=== PATIENT | female | born 1955 | race Caucasian/White ===

== ENCOUNTER 2019-06-02 09:42 | Outpatient (CLI) | payer MEDICARE, SELFPAY ==
--- NOTE | 2019-06-02 09:45 | MM_ITS ---
WS: [id number] SCREENING DIGITAL MAMMOGRAM WITH CAD HISTORY: SCREENING COMPARISON: 05/10/2018 and 04/19/2017 Bilateral CC and MLO views submitted. Computer aided detection analyzed. Breast composition: There are scattered areas of fibroglandular density. No suspicious masses, microc alcifications or architectural distortion. Benign calcifications in each breast. MM/[id number] IMPRESSION: BI-RADS: 2-Benign FOLLOW UP: 1 Year Follow-up
== END 2019-06-02 09:43 | disposition home or self-care (01) ==
LOC: RADSHAW 09:42
PROVIDERS: Family Provider Family Medicine; PCP Family Medicine; Visit Provider Family Medicine
DX: Z12.31 Encounter for screening mammogram for malignant neoplasm of breast (principal)
CPT/HCPCS: 77067

== ENCOUNTER 2019-07-02 12:25 | Outpatient (CLI) | payer MEDICARE, SELFPAY ==
--- NOTE | 2019-07-02 12:43 | XR_ITS ---
WS: [id number] LATERAL LUMBAR SPINE: 3 view. Lateral radiographs are performed in upright neutral, flexion and extension to the patient's toleranc e. HISTORY: LOW BACK PAIN COMPARISON: None available. Marked osteopenia. Posterior lumbar alignment is normal taking into consideration the rotation of the vertebral bodies. Facet joint arthropathy and mild foraminal narrowing and facet arthropathy. Mild l oss of height involving the superior endplate of L2. No instability. XR/XR lumbar spine f/e only [id number] IMPRESSION: 1. No lumbar spine instability. 2. Multilevel moderate spondylitic changes.
== END 2019-07-02 12:26 | disposition home or self-care (01) ==
PROVIDERS: Family Provider Family Medicine; PCP Family Medicine; Visit Provider Nurse Practitioner
DX: M54.5 Low back pain (principal)
CPT/HCPCS: 72120

== ENCOUNTER 2020-07-05 14:53 | Outpatient (CLI) | payer MEDICARE, SELFPAY ==
--- NOTE | 2020-07-05 14:59 | MM_ITS ---
WS: [id number] BILATERAL DIGITAL SCREENING MAMMOGRAPHY WITH CAD CLINICAL INFORMATION: SCREENING HISTORY: Screening mammogram. No current complaints. COMPARISON: June 02, 2019 TECHNIQUE: Bilateral CC and MLO views. FINDINGS: Scattered fibroglandular densities bilaterally. 5 mm nodular density near the 1:00 position posterior depth. Recommend further evaluation with spot right diagnostic mammography and ultrasound. Left breast is unremarkable and unchanged. MM/[place] [id number] IMPRESSION: BI-RADS: 0-Incomplete: Need additional imaging evaluation FOLLOW UP: Need Additional Imaging RECOMMEND FURTHER EVALUATION RIGHT BREAST DIAGNOSTIC MAMMOGRAPHY AND ULTRASOUND .
== END 2020-07-05 14:54 | disposition home or self-care (01) ==
LOC: RADSHAW 14:58
PROVIDERS: PCP Family Medicine; Visit Provider Family Medicine
DX: Z12.31 Encounter for screening mammogram for malignant neoplasm of breast (principal); N63.12 Unspecified lump in the right breast, upper inner quadrant
CPT/HCPCS: 77067

== ENCOUNTER 2020-08-17 13:09 | Outpatient (CLI) | payer MEDICARE, SELFPAY ==
--- NOTE | 2020-08-17 13:26 | XR_ITS ---
WS: [id number] CHEST 2 VIEWS HISTORY: HEMOPTYSIS COMPARISON: None available. Lungs: Clear with no abnormality. No pleural effusion or pneumothorax. Cardiac size: Normal. Mediastinum/Aorta: Normal mediastinum. Bones: Mild thoracic spondylosis. XR/XR chest 2V* [id number] IMPRESSION: Negative chest.
== END 2020-08-17 13:10 | disposition home or self-care (01) ==
LOC: RADOUTREAD 13:15 → RADWPI 13:25
PROVIDERS: PCP Family Medicine; Visit Provider Registered Nurse
DX: R04.2 Hemoptysis (principal)
CPT/HCPCS: 71046

== ENCOUNTER 2020-09-08 08:54 | Outpatient (CLI) | payer MEDICARE, SELFPAY ==
--- NOTE | 2020-09-08 09:02 | US_ITS ---
WS: [id number] RIGHT DIGITAL MAMMOGRAPHY WITH CAD CLINICAL INFORMATION: ABNORMAL MAMMOGRAM COMPARISON: July 05, 2020 TECHNIQUE: 3 views of the right breast were obtained. FINDINGS: Scattered fibroglandular densities of the right breast. Again seen is the 5 mm ovoid density posterio r depth at the 1:00 position. Ultrasound is pending. ULTRASOUND BREAST RIGHT TECHNIQUE: Ultrasound right breast focused area of concern. CLINICAL INFORMATION: ABNORMAL MAMMOGRAM COMPARISON: None. FINDINGS: Ultrasound right breast 1:00 position 4 cm from the nipple. Small cystic lesion measuring 6 mm 1:00 p osition has a benign appearance. A few incidental prominent ducts. No suspicious lesions to target fo r biopsy. Recommend return to annual screening mammography. US/US breast RT limited* [id number] IMPRESSION: BI-RADS: 2-Benign FOLLOW UP: 1 Year Follow-up Recommend return to annual screening mammography.
== END 2020-09-08 08:55 | disposition home or self-care (01) ==
LOC: RADSHAW 08:57
PROVIDERS: PCP Family Medicine; Visit Provider Family Medicine
DX: R92.8 Other abnormal and inconclusive findings on diagnostic imaging of breast (principal)
CPT/HCPCS: 76642; 77065

== ENCOUNTER 2020-11-03 13:07 | Emergency (ER) | payer MEDICARE, SELFPAY ==
[2020-11-03 13:41] VITALS: BP 208/81; PULSE 76; RESP 20; TEMP 37.1; O2SAT 96; BMI 40.3
--- NOTE | 2020-11-03 14:07 | ECG_ITS ---
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 Measurements Intervals [place] Rate: 71 P: 16 AK: 184 QRS: 22 QRSD: 78 T: 30 QT: 389 QTc: 425 Interpretive Statements SINUS RHYTHM No previous ECG available for comparison Electronically Signed On 11-03-2020 20:05:52 CDT by Chandler Robb M.D. [id number]
--- NOTE | 2020-11-03 14:20 | W.ED.WEAKNES ---
HPI - Weakness General: Chief complaint: Weakness Stated complaint: headache, HTN Time Seen by Provider: 11/03/20 13:51 History of Present Illness: HPI Narrative: 65-year-old female presents emergency room complaining of headache and elevated blood pressure. She was out to eat with her friends went to stand up got lightheaded and dizzy ultimately had to lean on some other furniture for support. She denies any chest pain or difficulty breathing. She denies any focal weakness no difficulty speech swallowing hearing or vision. She has a mild frontal headache associated with this. MD Complaint: generalized weakness Onset (ago): hour(s) Duration: constant Location: generalized Migration: none Severity: mild Relieving factors: none Exacerbating factors: none Associated symptoms: Reports headache(s); Denies chest pain, chills, confusion, melena, decreased appetite, diaphoresis, dysuria, easy bruising, fever(s), myalgias, nausea, rash, short of breath, syncope or vomiting Review of Systems Const: Denies: fever(s), chills or diaphoresis ENMT: Denies: throat pain, ear or mastoid pain, nasal discharge or nasal congestion Card: Denies: chest pain or syncope Resp: Denies: dyspnea, productive cough or non-productive cough GI: Denies: nausea, vomiting or melena : Denies: dysuria Skin/Breast: Denies: rash or pruritus Neuro: Reports: headache(s); Denies: confusion Artie/Lymph: Denies: easy bruising Physical Exam Const: COMMON NORMALS: no acute distress GENERAL APPEARANCE: cooperative and comfortable ORIENTATION/CONSCIOUSNESS: Yes awake, Yes oriented to person, Yes oriented to place and Yes oriented to time HENMT: COMMON NORMALS: normocephalic, atraumatic, hearing grossly normal bilaterally and external ears normal HEAD & SCALP: normocephalic and atraumatic EXTERNAL EAR: Yes external ears normal Neck/C-Spine: COMMON NORMALS: no JVD Resp: COMMON NORMALS: normal respiratory effort, No retractions, No use of accessory muscles and clear to auscultation bilaterally AUSCULTATION: clear to auscultation bilaterally Cardio: COMMON NORMALS: no JVD, regular rate, regular rhythm and No murmurs present (Cardio) RATE: regular rate RHYTHM: regular rhythm GI: COMMON NORMALS: Soft to palpation and No hepatosplenomegaly present AUSCULTATION: Yes normoactive bowel sounds PALPATION: Yes Soft to palpation, No Tenderness to palpation present (GI), No Guarding due to palpation present (GI) and Yes No hepatosplenomegaly present Extremity: COMMON NORMALS: normal to inspection, capillary refill normal, no clubbing, cyanosis or edema, no calf tenderness and no pedal edema Neuro: SENSORIUM/ORIENTATION: Yes oriented to person, Yes oriented to place and Yes oriented to time Skin: COMMON NORMALS: no rashes or lesions noted GENERAL SKIN EXAM: no rashes or lesions noted Course Vital Signs: Vital signs: Vital Signs Temperature 98.8 F 11/03/20 13:41 Pulse Rate 70 11/03/20 16:56 Respiratory Rate 17 11/03/20 16:56 Blood Pressure 183/72 11/03/20 16:56 Pulse Oximetry 96 11/03/20 16:56 MDM - Weakness MDM Narrative: Medical decision making narrative: head CT negative blood pressure is improved with medications or headache is resolved. We will go ahead and discharge patient home add metoprolol 25 mg once daily amlodipine 2 mg daily. Follow-up with primary care doctor within a week Lab Data: Labs: Lab Results 11/03/20 11/03/20 11/03/20 Range/Units 14:27 15:12 15:12 WBC 11.6 H (4.0-10.0) 10^3/ uL RBC 4.36 (4.1-5.3) 10^6/u L Hgb 13.5 (11.5-15.3) g/dL Hct 40.9 (37.0-47.0) % MCV 93.8 (81-99) fL MCH 31.0 (28.0-34.0) pg MCHC 33.0 (30.0-36.0) g/dL RDW 12.7 (12.1-15.1) % Plt Count 293 (130-400) 10^3/c mm MPV 10.1 (7.4-10.4) fL Neut % (Auto) 79.6 % Lymph % (Auto) 13.0 % Mcmullen % (Auto) 6.2 % Eos % (Auto) 0.5 % Baso % (Auto) 0.3 % Neut # (Auto) 9.22 H (1.8-7.7) 10^3/u L Lymph # (Auto) 1.5 (0.8-4.8) 10^3/u L Mcmullen # (Auto) 0.7 (0.2-0.9) 10^3/u L Eos # (Auto) 0.1 (0.0-0.8) 10^3/u L Baso # (Auto) 0.0 (0.0-0.1) 10^3/u L Nucleated RBC % (a uto) 0 % Nucleated RBCs # 0.0 /100WBC Sodium 135 L (136-145) mmol/L Potassium 4.3 (3.5-5.1) mmol/L Chloride 99 (98-107) mmol/L Carbon Dioxide 28 (22-29) mmol/L Anion Gap 12.3 (5-19) BUN 20 (8-23) mg/dL Creatinine 1.0 H (0.5-0.9) mg/dL GFR Calculation 55.3 L (90-130) mL/min Glucose 129 H (65-115) mg/dL Calculated Osmolal ity 284 L (285-295) mOsm/k g Calcium 9.1 (8.5-10.5) mg/dL Total Bilirubin 0.3 (0.15-1.2) mg/dL AST 22 (0-32) U/L ALT 26 (0-33) U/L Alkaline Phosphata se 92 (35-105) IU/L Creatine Kinase 66 (26-192) U/L Total Protein 6.8 (6.6-8.7) g/dL Albumin 3.8 (3.5-5.2) g/dL Globulin 3.0 (1.3-4.6) g/dL Urine Color Yellow (Yellow) Urine Appearance Clear (CLEAR) Urine pH 6 (5-7) Ur Specific Gravit y 1.010 (1.005-1.030) Urine Protein Neg (Negative) Urine Glucose (UA) Norm (Normal) Urine Ketones Negative (Negative) Urine Blood Neg (Negative) Urine Nitrate Negative (Negative) Urine Bilirubin Neg (Negative) Urine Urobilinogen Norm (Negative) mg/dL Ur Leukocyte Lupe ase Negative (Negative) Discharge Plan Discharge Patient Disposition: Home Clinical Impression: Hypertension Condition: Stable Prescriptions: New metoprolol succinate 25 mg tablet extended release 24 hr 25 mg PO DAILY Qty: 30 RF: 0 amlodipine 10 mg tablet 10 mg PO DAILY Qty: 30 RF: 0 Discharge Orders: Discharge ED (Routine); Ordered 11/03/20 Ordered By: Domingo Hinton Referrals: Mallory Dean DO [Primary Care Provider] - Discharge Diet: Usual diet Discharge Activity: Increase activity as tolerated Patient Instructions: Opioid Safety Activity Restrictions/Additional Instructions: Follow-up to recheck your pressure within 1 week with your primary care doctor. Coding Level of Care Code ED Housekeeping Aid for Alvaradog Fwd Exam Comprehensive NIH stroke score NIHSS Level Of Consciousness - 1a: 0 Level Of Consciousness Questions - 1b: Both Correct Level Of Consciousness Commands - 1c: Both Correct Best Gaze - 2: Normal Visual Chand - 3: No Visual Loss Facial Palsy - 4: Normal Motor Arm Right - 5: No Drift Motor Arm Left - 5: No Drift Motor Leg Right - 6: No Drift Motor Leg Left - 6: No Drift Limb Ataxia - 7: Absent Sensory - 8: Normal Best Language - 9: No Aphasia Dysarthia - 10: Normal Extinction And Inattention - 11: 0 Score Total Score: 0
[2020-11-03 14:37] LABS: Add Urine Microscopic? NO; Charge for UA Resulting for Rev
[2020-11-03 14:43] LABS: Urine Appearance Clear (CLEAR); Urine Color Yellow (Yellow)
[2020-11-03] MEDS: metoprolol tartrate 1 mg/1 mL SDV 5 mL 5 MG IV ×2 (14:43→16:47)
[2020-11-03] MEDS: amlodipine 10 mg Tablet PO (14:43)
[2020-11-03 14:44] LABS: Bilirubin Urine Neg (Negative); Blood Urine Neg (Negative); Glucose Urine UA Norm (Normal); Ketones Urine Negative (Negative); Leukocyte Esterase Urine Negative (Negative); Nitrate Urine Negative (Negative); Protein Urine Neg (Negative); Urobilinogen Urine Norm (Negative); pH Urine 6 (5-7)
[2020-11-03] MEDS: hyDRALAzine 20 mg/mL INJ 1 mL IVP (15:00)
[2020-11-03 15:23] LABS: Basophils % 0.3 %; Eosinophils # 0.1 10^3/uL (0.0-0.8); Eosinophils % 0.5 %; Hematocrit 40.9 % (37.0-47.0); Hemoglobin 13.5 g/dL (11.5-15.3); Lymphocytes # 1.5 10^3/uL (0.8-4.8); Mean Corpuscular Volume 93.8 fL (81-99); Mean Platelet Volume 10.1 fL (7.4-10.4); Monocytes # 0.7 10^3/uL (0.2-0.9); Monocytes % 6.2 %; Neutrophils # 9.22 10^3/uL (1.8-7.7); Neutrophils % 79.6 %; Nucleated Red Blood Cells % 0 %; Platelet Count 293 10^3/cmm (130-400); Red Blood Count 4.36 10^6/uL (4.1-5.3); Red Cell Distribution Width 12.7 % (12.1-15.1); White Blood Count 11.6 10^3/uL (4.0-10.0)
--- NOTE | 2020-11-03 15:36 | CT_ITS ---
WS: [id number] CT HEAD NONCONTRAST HISTORY: headache, accelerated HTN TECHNIQUE: Contiguous axial imaging performed through the brain in 2.5 mm imaging. Bone and soft tiss ue windows. Sagittal and coronal reformats reviewed. All CT scans at [facility] use at ast one of these dose optimization techniques: automated exposure control; mA and/or kV adjustment pe r patient size (includes targeted exams where dose is matched to clinical indication); or iterative r econstruction. DLP: 937.89 mGy.cm COMPARISON: None available. No acute intracranial hemorrhage, midline shift or mass effect. No atrophy or prior infarcts or herniation. Very minimal changes of chronic microvascular ischemic d isease in the white matter. Prior lacunar infarct in the RIGHT external capsule. Ventricles: Normal size with no hydrocephalus. Paranasal sinuses: As visualized are clear. Mastoid air cells: Well pneumatized. Calvarium and scalp: Skull is intact with no soft tissue edema or swelling. CT/CT head wo con* [id number] IMPRESSION: 1. No acute intracranial hemorrhage or edema. 2. Very mild chronic microvascular ischemic disease.
[2020-11-03 15:41] LABS: Alanine Aminotransferase 26 U/L (0-33); Albumin Level 3.8 g/dL (3.5-5.2); Alkaline Phosphatase 92 IU/L (35-105); Anion Gap 12.3 (5-19); Aspartate Amino Transferase 22 U/L (0-32); Blood Urea Nitrogen 20 mg/dL (8-23); Calcium 9.1 mg/dL (8.5-10.5); Carbon Dioxide 28 mmol/L (22-29); Chloride 99 mmol/L (98-107); Creatine Phosphokinase 66 U/L (26-192); Glomerular Filtration Rate 55.3 mL/min (90-130); Glucose 129 mg/dL (65-115); Osmolality Calculated 284 mOsm/kg (285-295); Potassium 4.3 mmol/L (3.5-5.1); Sodium 135 mmol/L (136-145); Total Bilirubin 0.3 mg/dL (0.15-1.2); Total Protein 6.8 g/dL (6.6-8.7)
[2020-11-03 15:42] LABS: Creatinine Clr Calc Pharmacy 69.7539
[2020-11-03] MEDS: acetaminophen 500 mg Tablet 1000 MG PO (16:14)
[2020-11-03 16:21] VITALS: BP 179/83; PULSE 81; RESP 18; O2SAT 98
[2020-11-03] MEDS: metoprolol tartrate 50 mg Tablet PO (16:47)
[2020-11-03 16:56] VITALS: BP 183/72; PULSE 70; RESP 17; O2SAT 96
[2020-11-03 17:29] VITALS: BP 169/99; PULSE 65; RESP 18; O2SAT 97
== END 2020-11-03 17:31 | disposition home or self-care (01) ==
PROVIDERS: Emergency Provider Family Medicine; PCP Family Medicine
DX: I10 Essential (primary) hypertension (principal)
CPT/HCPCS: 36415; 70450; 80053; 81003; 82550; 85025; 93005; 96374; 96375; 96376; 99284; J0360; J3490

== ENCOUNTER → 2021-03-24 10:35 | Outpatient (BNVA) | payer MEDICARE, SELFPAY | PROVIDERS: PCP Family Medicine; Visit Provider Surgery | DX: Z20.822 Contact with and (suspected) exposure to COVID-19 (principal); Z11.52 Encounter for screening for COVID-19 | CPT/HCPCS: 87635 ==

== ENCOUNTER 2021-03-30 08:04 | Day surgery (SDC) | payer MEDICARE, SELFPAY ==
[2021-03-28 13:39] VITALS: BMI 41.9
--- NOTE | 2021-03-30 08:29 | ANES.PREANE2 ---
Pre-Anesthetic Assessment Pre-Anesthetic Assessment: Height/Weight: Height 1.68 m Weight 117.934 kg Proposed Procedure: Operation Date: 03/30/21 09:15 Proposed Procedures p Colonoscopy 37321 Z86.010(Not Applicable) - David Blake MD Was Beta Lc taken within 24 hours: Yes Was Clonidine taken within 24 hours: N/A Social: Social History: No alcohol and No tobacco Exam: Pre-Anes Outpt Exam: alert, oriented x 3, clear to auscultation bilaterally and regular rate & rhythm Airway: Submandibular: WNL Cervical ROM: WNL MP: 2 Dentition: Full CV/HEM: CV/HEM: HTN Metabolic: Metabolic: Morbid obesity Neuropsych: Neuropsych: Anxiety Anesthetic Plan: ASA status: 3 Anesthesia: MAC Risk of > 500 ml blood loss (7ml/kg in children): No PFSH Anesthesia PFSH: Family History Other Cancer Diabetes Hypertension Denies family history of CAD (coronary artery disease) Dementia Chronic kidney disease (CKD) Lung disease Stroke Social History Smoking and tobacco status: never smoked Data Anesthesia Cardiac Studies: No Data to Display
[2021-03-30 09:04] VITALS: BP 170/78; PULSE 73; RESP 16; TEMP 36.1; O2SAT 99
[2021-03-30] MEDS: sodium chloride 0.9% 1,000 ML 30 ML IV (09:16)
--- NOTE | 2021-03-30 09:35 | W.PM.OPSFHP ---
Same Day Surgery H&P Indication for Procedure/HPI DATE OF PROCEDURE: March 30, 2021 CHIEF COMPLAINT/INDICATIONFOR SURGICAL PROCEDURE: History of colon polyp PREOP DIAGNOSIS: History of colon polyps PLANNED PROCEDRUE: Operation Date: 03/30/21 09:15 Proposed Procedures p Colonoscopy 50872 Z86.010(Not Applicable) - David Blake MD 02/07/2021 This is a pleasant 65 years old female patient undergone a colonoscopy before couple of years, patient comes today for surveillance colonoscopy, she denies bleeding per rectum or history of colon cancer. Pathology at that time did show Sigmoid colon polyp, polypectomy: Tubular adenoma with low-grade dysplasia No high-grade dysplasia or malignancy identified 03/30/2021. Patient comes today for surveillance colonoscopy ROS All systems have been reviewed negative except as per the above or per problem list Medications/Allergies* Home Medications Medication Instructions Recorded Confirmed Type cholecalciferol (vitamin D3) 25 25 mcg PO DAILY 02/07/21 03/30/21 History mcg (1,000 unit) capsule citalopram 20 mg tablet 20 mg PO DAILY 02/07/21 03/30/21 History losartan 50 mg tablet 50 mg PO DAILY 02/07/21 03/30/21 History sitagliptin 50 mg tablet 50 mg PO DAILY 02/07/21 03/30/21 History Allergies/Adverse Reactions Allergy/AdvReac Type Severity Reaction Status Date / Time Penicillins Allergy ALGY-Anaphy Verified 02/07/21 13:12 laxis Current Medications: Generic Name Dose Route Start Last Admin Trade Name Freq PRN Reason Stop Dose Admin Sodium Chloride 1,000 mls @ 30 mls/hr 03/30/21 08:45 03/30/21 09:16 Sodium Chloride 0.9% IV 03/31/21 08:44 30 mls/hr .Q24H GUILLERMO Administration Pertinent History/Comorbid Conditions* Family History (Updated 02/07/21 @ 08:58 by Ani Hemphill) Diabetes Cancer Hypertension Denies family history of CAD (coronary artery disease) Dementia Chronic kidney disease (CKD) Lung disease Stroke Social History Smoking and tobacco status: never smoked Pertinent Exam Findings alert, oriented x 3, regular rate & rhythm and procedure specific exam findings (Abdominal examination nontender nondistended) Recommendations Surgery/Procedure today (Surveillance colonoscopy) Coding Level of Care Code Acute Public Works Laborer for Ernie Ware
[2021-03-30 10:18] VITALS: BP 111/70; PULSE 71; RESP 16; TEMP 36.4; O2SAT 95
--- NOTE | 2021-03-30 10:23 | ANE.PACU2 ---
Inpatient post-anesthesia follow up: Airway intact: Yes Vital signs: Temperature 97 F Pulse Rate 73 Respiratory Rate 16 Blood Pressure 170/78 Pulse Oximetry 99 Oxygen Delivery Me thod Room Air Oxygen Flow Rate Fraction of Inspir ed Oxygen Hydration adequate: Yes Nausea and vomiting: No Pain level: 1 Mental status: Baseline
[2021-03-30 10:28] VITALS: BP 119/86; PULSE 71; RESP 16; O2SAT 97
[2021-03-30 12:40] LABS: Glucose Point of Care 149 mg/dL (70-110)
== END 2021-03-30 10:50 | disposition home or self-care (01) ==
PROVIDERS: PCP Family Medicine; Visit Provider Surgery
PROC: 0DJD8ZZ Inspection of Lower Intestinal Tract, Via Natural or Artificial Opening Endoscopic (ICD-10-PCS; CPT 45378; principal; 2021-03-30 09:15)
DX: Z12.11 Encounter for screening for malignant neoplasm of colon (principal); K57.30 Diverticulosis of large intestine without perforation or abscess without bleeding; Z86.010 Personal history of colon polyps; Z88.0 Allergy status to penicillin
CPT/HCPCS: 36416; 45378; 82962; 96360; G0121; J2704; J7030

== ENCOUNTER 2021-08-09 06:00 | Outpatient (RCR) | payer MEDICARE, SELFPAY | END 2021-08-11 23:59 | disposition home or self-care (01) | LOC: SPT 06:00 | PROVIDERS: PCP Family Medicine; Referring Provider Otolaryngology; Visit Provider Otolaryngology | DX: H81.10 Benign paroxysmal vertigo, unspecified ear (principal) | CPT/HCPCS: 95992; 97161 ==

== ENCOUNTER 2021-08-12 06:00 | Outpatient (RCR) | payer MEDICARE, SELFPAY | END 2021-08-18 23:59 | disposition home or self-care (01) | LOC: SPT 06:00 | PROVIDERS: PCP Family Medicine; Referring Provider Otolaryngology; Visit Provider Otolaryngology | DX: H81.10 Benign paroxysmal vertigo, unspecified ear (principal) | CPT/HCPCS: 95992 ==

== ENCOUNTER 2021-10-06 11:47 | Outpatient (CLI) | payer MEDICARE, SELFPAY ==
--- NOTE | 2021-10-06 11:56 | MM_ITS ---
WS: [id number] VIEWS: MLO and CC views both breasts. 3D digital tomosynthesis is also included in this exam. Comparison made with prior exam of 05/11/2016, 04/19/2017, 07/05/2020.. Findings: There was no sign of mass, architectural distortion or suspicious calcification in either breast. Fa tty MM/[place] [id number] Impression: BI-RADS: 2-Benign FOLLOW-UP: 1 Year Follow-up This mammogram was also analyzed by the Computer Aided Detection System R2 Imag e Front Office Attendant.
== END 2021-10-06 11:48 | disposition home or self-care (01) ==
LOC: RAD 11:53
PROVIDERS: PCP Family Medicine; Visit Provider Family Medicine
DX: Z12.31 Encounter for screening mammogram for malignant neoplasm of breast (principal)
CPT/HCPCS: 77063; 77067

== ENCOUNTER → 2021-12-06 09:28 | Outpatient (BNVA) | payer MEDICARE, SELFPAY | PROVIDERS: PCP Family Medicine; Referring Provider Nurse Practitioner Family; Visit Provider Podiatrist Foot & Ankle Surgery | DX: E11.21 Type 2 diabetes mellitus with diabetic nephropathy (principal); L60.3 Nail dystrophy; M20.41 Other hammer toe(s) (acquired), right foot; M20.42 Other hammer toe(s) (acquired), left foot; I73.9 Peripheral vascular disease, unspecified; L84 Corns and callosities | CPT/HCPCS: 11056; 11721; 99204 ==

== ENCOUNTER → 2022-01-12 11:42 | Outpatient (BNVA) | payer MEDICARE, SELFPAY | PROVIDERS: PCP Family Medicine; Visit Provider Registered Nurse Neonatal Intensive Care | DX: N39.0 Urinary tract infection, site not specified (principal); B37.2 Candidiasis of skin and nail | CPT/HCPCS: 81000 ==

== ENCOUNTER 2022-01-30 11:21 | Outpatient (CLI) | payer MEDICARE, SELFPAY ==
--- NOTE | 2022-01-30 11:29 | XRR_ITS ---
PROCEDURE INFORMATION: Exam: XR Chest Exam date and time: 01/30/2022 11:45 AM Age: 66 years old Clinical indication: Condition or disease; Lung condition and disease; Other: Acute bronchitis TECHNIQUE: Imaging protocol: Radiologic exam of the chest. Views: 2 views. COMPARISON: CR XR chest 2V* [id number] 08/17/2020 1:30 PM FINDINGS: Lungs: There is a faint 1.5 cm nodular density projecting just lateral to the right pulmonary hilum which I cannot identify on old radiographs. Follow-up examination with a CT scan of the chest is advised. The left lung is clear. Pleural spaces: Unremarkable. No pleural effusion. No pneumothorax. Heart/Mediastinum: Unremarkable. No cardiomegaly. Bones/joints: Unremarkable. XR/XR chest 2V* [id number] IMPRESSION: There is a faint 1.5 cm nodular density projecting just lateral to the right pulmonary hilum. CT scan of the chest is advised for further evaluation.
== END 2022-01-30 11:22 | disposition home or self-care (01) ==
LOC: RAD 11:22
PROVIDERS: Visit Provider Nurse Practitioner Family
DX: J20.8 Acute bronchitis due to other specified organisms (principal)
CPT/HCPCS: 71046

== ENCOUNTER 2022-02-13 07:17 | Outpatient (CLI) | payer MEDICARE, SELFPAY ==
--- NOTE | 2022-02-13 07:35 | CT_ITS ---
WS: [id number] CT CHEST TECHNIQUE: Contrast enhanced CT of the chest with coronal and sagittal reformatted images. CLINICAL INFORMATION: LUNG NODULE COMPARISON: January 30, 2022 DLP: 846.[address] scans at [facility] use at least one of these dose optimization techniques: automated e xposure control; mA and/or kV adjustment per patient size (includes targeted exams where dose is matc hed to clinical indication); or iterative reconstruction. FINDINGS:No acute pulmonary infiltrates. Lungs are well aerated. No suspicious pulmonary parenchymal opacities. No focal pneumonia or pleural fluid. Diffuse fatty infiltration liver. Normal portal vein and splenic vein. Normal spleen. Normal GE junct ion. Adrenal glands are normal. Normal caliber thoracic aorta. No mediastinal or hilar lymphadenopathy. No axillary lymphadenopathy. Hypertrophic changes thoracic spine. CT/CT chest w con* [id number] IMPRESSION: 1. Lungs are well aerated. No suspicious pulmonary parenchymal opacities to co rrespond with the prior radiograph findings. 2. No acute pulmonary infiltrates. 3. Normal caliber thoracic aorta. 4. Diffuse fatty infiltration of the liver.
[2022-02-13 08:22] LABS: Blood Urea Nitrogen 19 mg/dL (8-23); Glomerular Filtration Rate 62.3 mL/min (90-130)
[2022-02-13] MEDS: iohexol 350 mg/mL 100 mL Btl IV (08:28)
== END 2022-02-13 07:18 | disposition home or self-care (01) ==
LOC: RAD 07:18
PROVIDERS: Radiology Diagnostic Radiology; PCP Family Medicine; Visit Provider Nurse Practitioner Family
DX: R91.1 Solitary pulmonary nodule (principal); K76.0 Fatty (change of) liver, not elsewhere classified
CPT/HCPCS: 71260; 82565; 84520

== ENCOUNTER → 2022-02-14 16:04 | Outpatient (BNVA) | payer MEDICARE, SELFPAY | PROVIDERS: PCP Family Medicine; Visit Provider Otolaryngology | DX: M26.623 Arthralgia of bilateral temporomandibular joint (principal); F17.200 Nicotine dependence, unspecified, uncomplicated; H69.83 Other specified disorders of Eustachian tube, bilateral | CPT/HCPCS: 99213 ==

== ENCOUNTER → 2022-02-21 10:59 | Outpatient (BNVA) | payer MEDICARE, SELFPAY | PROVIDERS: PCP Family Medicine; Visit Provider Podiatrist Foot & Ankle Surgery | DX: E11.21 Type 2 diabetes mellitus with diabetic nephropathy (principal); I73.9 Peripheral vascular disease, unspecified; L60.3 Nail dystrophy; M20.41 Other hammer toe(s) (acquired), right foot; M20.42 Other hammer toe(s) (acquired), left foot; L84 Corns and callosities | CPT/HCPCS: 11055; 11721; 99213 ==

== ENCOUNTER 2022-10-03 09:59 | Outpatient (CLI) | payer MEDICARE, SELFPAY ==
--- NOTE | 2022-10-03 10:44 | XR_ITS ---
WS: [id number] SCREENING DEXA SCAN [employer] CLINICAL INFORMATION: POSTMENOPAUSAL COMPARISON: 2019 FINDINGS: The L1-L4 bone mineral density measures 1.594 g/cm2. This corresponds to a T score score of 3.5 and Z score of 3.9. Left femoral neck bone mineral density measures 1.235 g/cm2. This corresponds to a T score of 1.8 and Z score of 2.4. Right femoral neck bone mineral density measures 1.225 g/cm2. This corresponds to a T score 1.7of and Z score of 2.3. Mean femoral neck bone mineral density measures 1.230 g/cm2. This corresponds to a T score of 1.8 and Z score of 2.4. XR/XR DEXA axial skeleton* [id number] IMPRESSION: Normal bone mineralization. Patient's FRAX calculated 10 year probability for major osteoporotic fracture i s 6.1 % and osteoporotic hip fracture is 0.3%. Bone mineralization lumbar spine has decreased -0.6% since 2019 Bone mineralization femoral necks has decreased -1.7% since 2019
== END 2022-10-03 10:00 | disposition home or self-care (01) ==
PROVIDERS: PCP Physician Assistant; Visit Provider Physician Assistant
DX: Z78.0 Asymptomatic menopausal state (principal)
CPT/HCPCS: 77080

== ENCOUNTER 2022-10-05 12:10 | Outpatient (CLI) | payer MEDICARE, SELFPAY ==
--- NOTE | 2022-10-05 12:19 | USCV_ITS ---
Sharlene Odom Age: 67 Gender: F : 1955 Exam Date: 10/05/2022 12:53 Ordering Phys: Marce Cross Technologist: RAUDEL Exam Location: [facility] [place] Indication: MURMUR BP: 118 / 70 HR: 68 Rhythm: Sinus Technical Quality: Adequate MEASUREMENTS (Male / Female) Normal Values 2D ECHO LVOT Diameter 2.0 cm LV Ejection Fraction MOD 2C 72.5 % LV Ejection Fraction 2C AL 75.0 % LA Diameter 2.9 cm LA Width 3.6 cm LA Height 4.0 cm RA Width 3.0 cm RA Height 3.9 cm Aorta at Sinotubular Diameter 1.3 cm IVC Diameter 2.2 cm M-MODE Aortic Annulus Diameter 2.4 cm LA Ao Ratio MM 1.1 MV E Point Septal Separation 0.8 cm DOPPLER AV Peak Velocity 163.0 cm/s LVOT Peak Velocity 136.0 cm/s AV Area Cont Eq vti 3.0 cm squared AV Area Cont Eq pk 2.6 cm squared MV Peak Velocity 121.0 cm/s MV Area PHT 3.0 cm squared Mitral E to A Ratio 0.8 MV E' Velocity 49.0 cm/s Mitral E to MV E' Ratio 8.5 Mitral E to LV E' Lateral Ratio 10.9 Mitral E to LV E' Septal Ratio 7.0 TR Peak Velocity 248.8 cm/s TR Peak Gradient 24.8 mmHg TR Mean Velocity 209.3 cm/s TR Mean Gradient 18.7 mmHg TR Velocity Time Integral 76.8 cm TV Peak E Velocity 63.0 cm/s Right Atrial Pressure 3.0 mmHg Pulmonary Artery Systolic Pressu 27.8 mmHg PV Peak Velocity 110.0 cm/s RV Acceleration Time 0.2 s RV Ejection Time 0.3 s RV AcT/ET 0.7 FINDINGS Left Ventricle Normal left ventricular size, systolic function and wall thickness, with no regional wall motion abnormalities. Left ventricular ejection fraction is estimated at 70 %. Right Ventricle Normal right ventricular size and systolic function. Right Atrium Normal right atrial size. Left Atrium Normal left atrial size. Mitral Valve Structurally normal mitral valve. No mitral valve stenosis. Trace mitral valve regurgitation. Aortic Valve Aortic valve not well visualized. No aortic valve stenosis. No aortic valve regurgitation. Tricuspid Valve Structurally normal tricuspid valve. Trace tricuspid valve regurgitation. Pulmonic Valve Pulmonic valve not well visualized. Pericardium No pericardial effusion. Aorta Normal size aortic root and proximal ascending aorta. IVC Inferior vena cava not visualized. CONCLUSIONS 1. Normal left ventricular size, systolic function and wall thickness, with no regional wall motion abnormalities. Left ventricular ejection fraction is estimated at 70 %. 2. No significant valvular abnormality. 3. No prior similar studies to compare. Wanda Sue MD (Electronically Signed) Final Date: 10 Oct 2022 21:41 S
== END 2022-10-05 12:11 | disposition home or self-care (01) ==
LOC: RAD 12:15
PROVIDERS: PCP Physician Assistant; Visit Provider Physician Assistant
DX: R01.1 Cardiac murmur, unspecified (principal)
CPT/HCPCS: 93306

== ENCOUNTER 2022-10-13 10:14 | Outpatient (CLI) | payer MEDICARE, SELFPAY ==
--- NOTE | 2022-10-13 10:18 | MM_ITS ---
WS: [id number] BILATERAL 3D TOMOSYNTHESIS DIGITAL SCREENING MAMMOGRAPHY WITH CAD CLINICAL INFORMATION: SCREENING HISTORY: Screening mammogram. No current complaints. COMPARISON: 2021 TECHNIQUE: Bilateral CC and MLO views. FINDINGS: Scattered fibroglandular densities bilaterally. No suspicious focal mass, asymmetry, calcifications, or architectural distortion. No evidence of malignancy. A few incidental punctate calcifications. MM/[place] [id number] IMPRESSION: BI-RADS: 2-Benign FOLLOW UP: 1 Year Follow-up Recommend return to annual screening mammography.
== END 2022-10-13 10:15 | disposition home or self-care (01) ==
LOC: RAD 10:17
PROVIDERS: PCP Physician Assistant; Visit Provider Physician Assistant
DX: Z12.31 Encounter for screening mammogram for malignant neoplasm of breast (principal)
CPT/HCPCS: 77063; 77067

== ENCOUNTER 2023-10-06 19:15 | Emergency (ER) | payer MEDICARE, SELFPAY ==
[2023-10-06 19:43] VITALS: BP 209/102; PULSE 84; RESP 17; TEMP 36.8; O2SAT 93; BMI 41.9
--- NOTE | 2023-10-06 19:55 | ED_ITS ---
HPI - Neck Pain/Injury General: Chief Complaint: Neck Pain/Injury Stated Complaint: Back of neck pain, Nausea Time Seen by Provider: 10/06/23 19:50 History of Present Illness: Patient presents to the ER with a 2-day history of neck pain. She said when she woke up yesterday her right side of her neck into her right shoulder or trapezius muscle was hurting like she had a crick in her neck like she slept on it wrong. That went out throughout the day that way and within when she woke up this morning the right side felt better but now the left side is feeling the exact same way. She has limited range of motion secondary to pain and 10 spastic trapezius muscle on the left that has spasms in nature sending sharp shooting pains up and down her back and neck. There is no known trauma other than possibly sleeping on it wrong. Patient does not have any chronic neck pain other than normal arthritis type pains. Review of Systems General: Reports: 10 or more systems reviewed and unremarkable except in HPI and below PFSH ED PFSH: Medical History Hypertension Anxiety Depression Diabetes Yeast dermatitis Surgical History History of colonoscopy with polypectomy 2019 History of total hysterectomy 1999 History of total knee replacement rt 2017 History of dilation and curettage x2 History of knee surgery left Family History Other Cancer Diabetes Hypertension Denies family history of CAD (coronary artery disease) Dementia Chronic kidney disease (CKD) Lung disease Stroke Social History Smoking and tobacco/nicotine status: current every day tobacco/nicotine user Physical Exam Const: COMMON NORMALS: no acute distress, average body habitus, patient oriented x3, no limitations, healthy appearing, alert and well nourished HENMT: COMMON NORMALS: normocephalic, atraumatic, hearing grossly normal bilaterally, external ears normal, Normal external nose present, moist oral mucous membranes and oropharynx normal HEAD & SCALP: normocephalic and atraumatic NOSE: Normal external nose present EXTERNAL EAR: Yes external ears normal Eye: COMMON NORMALS: Equal, round and reactive pupils present, EOMs intact bilaterally, conjunctivae normal and no scleral icterus CONJUNCTIVA: Yes conjunctivae normal PUPIL: Yes Equal, round and reactive pupils present Neck/C-Spine: COMMON NORMALS: no meningeal signs, no JVD and Thyroid normal THYROID: Thyroid normal OTHER: Patient's left paraspinal muscles tight spastic very tender to touch. Limited range of motion secondary to pain. No pain over the spinous processes, no obvious deformity or crepitus. Right side of the neck and trapezius muscle normal exam Chest: COMMONS NORMALS: normal inspection of the chest and normal palpation of entire chest wall Resp: COMMON NORMALS: normal respiratory effort, No retractions, No use of accessory muscles and clear to auscultation bilaterally AUSCULTATION: clear to auscultation bilaterally Cardio: COMMON NORMALS: no JVD, regular rate, regular rhythm, S1 normal heart sound present, S2 normal heart sound present, No gallops present (Cardio), No clicks present (Cardio), No murmurs present (Cardio) and No rub (Cardio) RATE: regular rate RHYTHM: regular rhythm HEART SOUNDS: S1 normal heart sound present and S2 normal heart sound present Neuro: COMMON NORMALS: patient oriented x3 SENSORIUM/ORIENTATION: Yes alert MENINGEAL SIGNS: Yes no meningeal signs Course Vital Signs: Vital signs: Vital Signs Temperature 98.3 F 10/06/23 19:43 Pulse Rate 68 10/06/23 21:23 Respiratory Rate 16 10/06/23 21:23 Blood Pressure 200/93 10/06/23 21:23 Pulse Oximetry 96 10/06/23 21:23 Oxygen Delivery Me thod Room Air 10/06/23 19:43 MDM - Neck Pain/Injury Medical Decision Making Patient was given 60 mg of Toradol IM and 60 mg Norflex IM and his C-spine x-ray was obtained which showed multilevel mild to moderate to space narrowing degenerative changes. Patient said these medicines helped her pain immensely. Patient be discharged home on a steroid and a muscle relaxer and told to follow- up with her family practice doctor within the next 7 days. Lab Data Radiology Impressions Cervical Spine X-Ray 10/06/23 20:20 IMPRESSION: Multilevel [id number] disc space narrowing and degenerative disc calcification with productive degenerative endplate changes in the cervical spine. All radiology interpretation(s) finalized by discharge Discharge Plan Discharge Patient Disposition: Home Clinical Impression: Cervical spondylosis Condition: Stable Prescriptions: New prednisone 50 mg tablet 50 mg PO DAILY Qty: 5 0RF cyclobenzaprine 5 mg tablet 5 mg PO TID PRN (Reason: muscle spasm) Qty: 14 0RF No Action fluticasone propionate [Flonase Allergy Relief] 50 mcg/actuation spray,suspension 1 spray intranasal DAILY Rx Instructions: administer into each nostril sertraline 150 mg capsule 150 mg PO DAILY losartan 50 mg tablet 50 mg PO DAILY Januvia 50 mg tablet 50 mg PO DAILY citalopram 20 mg tablet 20 mg PO DAILY cholecalciferol (vitamin D3) 25 mcg (1,000 unit) capsule 25 mcg PO DAILY nystatin 100,000 unit/gram ointment 1 applic topical QID 7 Days Qty: 30 0RF fluconazole [Diflucan] 150 mg tablet 150 mg PO Q3D Qty: 4 0RF albuterol sulfate 90 mcg/actuation HFA aerosol inhaler 2 inh inhalation Q4H PRN (Reason: shortness of breath or wheezing) Qty: 6.7 0RF ibuprofen 600 mg tablet 600 mg PO Q6H PRN (Reason: fever or pain) Qty: 30 0RF azithromycin [Zithromax] 500 mg tablet 500 mg PO DAILY 5 Days Qty: 5 0RF prednisone 20 mg tablet 60 mg PO DAILY 5 Days Qty: 15 0RF (DME) Diabetic Shoes with 3 pairs of inserts See Rx Instructions .ROUTE .MEDSUPPLY Qty: 1 0RF Rx Instructions: As directed by HOME metoprolol succinate 25 mg tablet extended release 24 hr 25 mg PO DAILY Qty: 30 0RF Discharge Orders: Discharge ED (Routine); Ordered 10/06/23 Ordered By: Chucho Onofre Referrals: Marce Cross PA [Primary Care Provider] - 1 week Patient Instructions: Acute Neck Pain (ED) Activity Restrictions/Additional Instructions: Your neck x-ray showed you have significant arthritis but no acute changes. You are given a steroid and a muscle relaxer and they were sent to your pharmacy. Please take them as directed. Please follow-up with your family practice physician within the next 7 days for further evaluation and treatment. If your pain worsens or becomes unbearable please feel free to return to the ER. 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
[2023-10-06] MEDS: orphenadrine 30 mg/mL Inj 2 mL 60 MG IM (20:06)
[2023-10-06] MEDS: ketorolac 60 mg/2 mL INJ IM (20:07)
--- NOTE | 2023-10-06 20:20 | XRR_ITS ---
PROCEDURE INFORMATION: Exam: XR Cervical Spine Exam date and time: 10/06/2023 8:39 PM Age: 68 years old Clinical indication: Patient HX: C/O left sided neck pain with muscle spasm. No injury. ; Additional info: Pain no trauma TECHNIQUE: Imaging protocol: Radiologic exam of the cervical spine. Views: 2 or 3 views. COMPARISON: CR XR shoulder RT min 2V* [id number] 04/18/2022 2:19 PM FINDINGS: Bones/joints: Multilevel [id number] disc space narrowing and degenerative disc calcification with productive degenerative endplate changes in the cervical spine. Soft tissues: Unremarkable. XR/XR cervical spine 3V* [id number] IMPRESSION: Multilevel [id number] disc space narrowing and degenerative disc calcification with productive degenerative endplate changes in the cervical spine.
[2023-10-06 21:23] VITALS: BP 200/93; PULSE 68; RESP 16; O2SAT 96
== END 2023-10-06 21:54 | disposition home or self-care (01) ==
PROVIDERS: Emergency Provider Emergency Medicine; PCP Physician Assistant
DX: M47.812 Spondylosis without myelopathy or radiculopathy, cervical region (principal); I10 Essential (primary) hypertension; E11.9 Type 2 diabetes mellitus without complications; Z72.0 Tobacco use
CPT/HCPCS: 72040; 96372; 99284; J1885; J2360

== ENCOUNTER 2023-10-19 13:24 | Outpatient (CLI) | payer MEDICARE, SELFPAY ==
--- NOTE | 2023-10-19 13:38 | XR_ITS ---
WS: [id number] SCREENING DEXA SCAN [email or web address] CLINICAL INFORMATION: POSTMENOPAUSAL COMPARISON: 2022 FINDINGS: The L1-L4 bone mineral density measures 1.74. This corresponds to a T score score of 4.5 and Z score of 5.0. Left femoral neck bone mineral density measures 0.942. This corresponds to a T score of 0.2 and Z sco re of 1.6. Right femoral neck bone mineral density measures 1.05. This corresponds to a T score 1.1 of and Z sco re of 2.5. Mean femoral neck bone mineral density measures 1.00. This corresponds to a T score of 0.7 and Z scor e of 2.1. XR/XR DEXA axial skeleton* [id number] IMPRESSION: Normal bone mineralization. Patient's FRAX calculated 10 year probability for major osteoporotic fracture i s 8.7% and osteoporotic hip fracture is 0.5%. Bone mineral density of the lumbar spine increased 5.7% Bone mineral density of the femoral necks increased 3.4%
--- NOTE | 2023-10-19 13:38 | MM_ITS ---
WS: [id number] BILATERAL 3D TOMOSYNTHESIS DIGITAL SCREENING MAMMOGRAPHY WITH CAD CLINICAL INFORMATION: SCREENING HISTORY: Screening mammogram. No current complaints. COMPARISON: 2022 TECHNIQUE: Bilateral CC and MLO views. FINDINGS: Scattered fibroglandular densities bilaterally. No suspicious focal mass, asymmetry, calcifications, or architectural distortion. No evidence of malignancy. A few tiny incidental punctate calcifications . Stable intramammary lymph node upper quadrant RIGHT breast. MM/[place] [id number] IMPRESSION: BI-RADS: 2-Benign FOLLOW UP: 1 Year Follow-up Recommend return to annual screening mammography.
== END 2023-10-19 13:25 | disposition home or self-care (01) ==
LOC: RAD 13:24
PROVIDERS: PCP Physician Assistant; Visit Provider Physician Assistant
DX: Z12.31 Encounter for screening mammogram for malignant neoplasm of breast (principal); R92.323 Mammographic fibroglandular density, bilateral breasts; R92.1 Mammographic calcification found on diagnostic imaging of breast; Z78.0 Asymptomatic menopausal state
CPT/HCPCS: 77063; 77067; 77080

== ENCOUNTER 2023-10-30 14:00 | Outpatient (CLI) | payer MEDICARE, SELFPAY | END 2023-10-30 14:01 | disposition home or self-care (01) | LOC: SLEEP 10-31 12:27 | PROVIDERS: PCP Physician Assistant; Visit Provider Physician Assistant | DX: G47.33 Obstructive sleep apnea (adult) (pediatric) (principal); G47.36 Sleep related hypoventilation in conditions classified elsewhere | CPT/HCPCS: G0399 ==

== ENCOUNTER 2024-10-20 10:57 | Outpatient (CLI) | payer MEDICARE, SELFPAY ==
--- NOTE | 2024-10-20 10:59 | MM_ITS ---
WS: [id number] BILATERAL SCREENING DIGITAL TOMOSYNTHESIS MAMMOGRAM WITH CAD HISTORY: SCREENING COMPARISON: 10/19/2023, 10/13/2022 Bilateral CC and MLO views with tomosynthesis and synthetic mammography submitted. Computer aided detection analyzed. Breast composition: There are scattered areas of fibroglandular density. No suspicious masses, microcalcifications or architectural distortion. Stable RIGHT intramammary lymph node towards the axillary tail. Benign calcifications RIGHT breast. MM/MM scr BI tomosynthesis [id number] IMPRESSION: BI-RADS: 2 - Benign. FOLLOW UP: 1 Year Follow-up
== END 2024-10-20 10:58 | disposition home or self-care (01) ==
PROVIDERS: PCP Physician Assistant; Visit Provider Physician Assistant
DX: Z12.31 Encounter for screening mammogram for malignant neoplasm of breast (principal); R92.323 Mammographic fibroglandular density, bilateral breasts; R59.0 Localized enlarged lymph nodes; R92.1 Mammographic calcification found on diagnostic imaging of breast
CPT/HCPCS: 77063; 77067